=== PATIENT | female | born 1960 | race Caucasian/White ===

== ENCOUNTER 2016-10-03 14:00 | Outpatient (CLI) | payer OTHER ==
[~2016-10-03] VITALS: Ht 175.3 cm; Wt 118.9 kg
[~2016-10-03 14:00] MED LIST: PREN1TAB13 PO; WELLBUTRIN PO
[2016-10-03 14:19] VITALS: BP 146/84; PULSE 110; RESP 18; Ht 175.3 cm; Wt 118.9 kg
--- NOTE | 2016-10-03 14:56 | PN ---
Date/Time of Note Date/Time of Note DATE: 10/03/16 TIME: 14:45 Assessment/Plan Assessment/Plan Assessment/Plan [facility] Progress Note Date of Service: 10/03/16 Today's Impression & Plan: Overall stable and doing well after undergoing laparoscopic appendectomy for acute appendicitis at [facility] on 09/19/2016. No obvious wound problems including no infection or hernia. No intra-abdominal obvious complications. I am very pleased with the patient's progress. Most important issue in her remains her on healthy lifestyle and elevated BMI. We spent approximately 15 minutes in counseling time regarding the scope of the problem as well as ways to achieve a healthier lifestyle including smarter choices of food as well as importance of consistent daily exercise in her life. Answered all questions. Patient appeared to understand and agreed with the plans. 1. Follow-up with primary care physician 2. Follow-up with us as needed 3. Implement above changes in pursuit of a healthier lifestyle with the goal of bringing her BMI down to below 25 Thank you very much for allowing us to participate in the care of this very nice patient and wonderful family. If there are any questions, please feel free to contact me at . Please note: Spelling or grammatical errors in this note are likely due to EHR/ dictation systems and are not reflective of patient care quality. Also please note that the dictation timestamp of this note does not necessarily reflected time of the visit for this service. Updated Clinical Summary: The patient is a very pleasant 55-year-old lady admitted to [facility] through the emergency department with signs and symptoms consistent with acute appendicitis supported by her history, physical exam, elevation of WBC, and CT findings. S/p an otherwise uncomplicated laparoscopic appendectomy at [facility] with final path showing diagnosis of acute appendicitis and periappendicitis. Comorbidities: 1. Acute appendicitis, s/p an otherwise uncomplicated laparoscopic appendectomy at [facility] 09/19/16 with final path showing diagnosis of acute appendicitis and periappendicitis 2. BMI 34 3. Depression 4. Cholecystectomy 5. Hysterectomy 6. Various operations on extremities and non-abdominal cavity (16 total) Subjective: No major events or complaints since discharge from the hospital. No major pain complaints and reportedly under control with medications. No N/V, SOB or CP. + bowel activity Objective: Vitals: reviewed; please also see EHR Physical Exam: Lungs: breathing comfortably without tachypnea; no audible wheezes, rales or rhonchi on gross exam Abd: Soft, non-tender, and non-distended; no peritoneal signs or guarding; incisions c/d/i w/o obvious underlying e/e/d/h Skin: Appears pink and feels warm to touch. Neuro: Awake, alert and follows commands appropriately ADRIENNE BOYD M.D. Oct 03, 2016 14:56
== END 2016-10-03 16:20 | disposition home or self-care (01) ==
LOC: HPC 14:00
PROVIDERS: ATTEND Transplant Surgery
DX: K35.80 Unspecified acute appendicitis (principal); F32.9 Major depressive disorder, single episode, unspecified; Z90.710 Acquired absence of both cervix and uterus
CPT/HCPCS: G0463